=== PATIENT | female | born 1975 | race African-American/Black ===

== ENCOUNTER 2020-10-23 04:31 | Day surgery (SDC) | payer OTHER ==
[2020-10-19 14:29] VITALS: BMI 29.0
[2020-10-23] MEDS ORDERED: VASOPRESSIN 20 UNITS/ML VIAL IV ONE (13:02)
[2020-10-23] MEDS ORDERED: LIDOCAINE 1%/EPI 1:100000 (50 ML MULTI DOSE VIAL) ONE (13:25)
[2020-10-23] MEDS ORDERED: ELECTROLYTE-148 SOLN 1,000 ML IV SCH (13:30)
[2020-10-23] MEDS ORDERED: MIDAZOLAM HCL 2 MG/2 ML SINGLE DOSE VIAL ONE (13:38)
[2020-10-23] MEDS ORDERED: ceFAZolin SODIUM 1 GM VIAL ONE (13:42)
[2020-10-23] MEDS ORDERED: ACETAMINOPHEN INJECTION 100 ML IVPB ONE (13:44)
[2020-10-23] MEDS ORDERED: ceFAZolin SODIUM 1 GM VIAL IVPB ONE (13:46)
[2020-10-23] MEDS ORDERED: LIDOCAINE HCL 2% (50ML VIAL) NR ONE (13:49)
[2020-10-23] MEDS ORDERED: LIDOCAINE 1%/EPI 1:100000 (20 ML MULTI DOSE VIAL) IJ ONE (13:49)
[2020-10-23] MEDS ORDERED: oxyCODONE HCL 5 MG TABLET PO PRN (14:40)
[2020-10-23] MEDS ORDERED: PROMETHAZINE HCL 25 MG/1 ML VIAL IVPUSH PRN (14:40)
[2020-10-23] MEDS ORDERED: ONDANSETRON 4 MG/2 ML VIAL IVPUSH PRN (14:40)
[2020-10-23 16:45] VITALS: TEMP 97.6
[2020-10-23] MEDS ORDERED: oxyCODONE HCL 10 MG SUSTAINED ACTING TABLET ONE (17:11)
[2020-10-23 18:25] VITALS: BP 126/69; PULSE 68
== END 2020-10-23 18:20 | disposition home or self-care (01) ==
LOC: JASU-SURG 04:31
PROVIDERS: ATTEND Urology
PROC: 0TSD0ZZ Reposition Urethra, Open Approach (ICD-10-PCS; principal; 2020-10-23 12:30)
DX: N39.3 Stress incontinence (female) (male) (principal)
CPT/HCPCS: 57288; C1771; 81025; 94760; J0131